=== PATIENT | male | born 2000 | race African-American/Black ===

== ENCOUNTER 2021-01-22 18:15 | Emergency (ER) | payer OTHER, SELFPAY ==
[2021-01-22] MEDS ORDERED: diphenhydrAMINE 50 MG/ML VIAL ONE (20:17)
[2021-01-22] MEDS ORDERED: Ketorolac Tromethamine 15 MG/ML VIAL ONE (20:19)
[2021-01-22] MEDS ORDERED: Metoclopramide HCl 10 MG/2 ML VIAL ONE (20:19)
== END 2021-01-22 21:42 | disposition home or self-care (01) ==
LOC: CSHERS 18:15
DX: F07.81 Postconcussional syndrome (principal); F17.210 Nicotine dependence, cigarettes, uncomplicated
CPT/HCPCS: 70450; 96365; 96375; J1200; J1885; J2765